=== PATIENT | male | born 1940 | race Caucasian/White ===

== ENCOUNTER → 2018-08-09 | Outpatient (CLI) | payer MEDICARE, OTHER ==
--- NOTE | 2018-08-09 22:04 | XR ---
EXAMINATION TYPE: XR abdomen 1V DATE OF EXAM: 08/09/2018 Comparison: None Clinical History: 78-year-old male follow-up kidney stones, N20.1 calculus of ureter Findings: Nonobstructive bowel gas pattern. Large patient body habitus and resulting underpenetration. Possible 7 mm left upper pole renal calculus. Suspected vascular calcifications in the pelvis. Degenerative c hanges at the hips. No significant stool burden. Impression: Possible 7 mm left upper pole renal calculus. Vascular calcifications in the pelvis. Limited assessme nt due to underpenetration from large body habitus.
== END | disposition home or self-care (01) ==
LOC: RADXRMAIN 11:50
PROVIDERS: ATTEND Urology
DX: N20.1 Calculus of ureter (principal); I70.8 Atherosclerosis of other arteries
CPT/HCPCS: 74018

== ENCOUNTER 2018-09-07 11:27 | Observation (INO) | payer MEDICARE, OTHER ==
[2018-09-07] MEDS ORDERED: NITROGLYCERIN OINT 1 INCH/GM PACKET TOPICAL STA (12:17)
[2018-09-07] MEDS ORDERED: FUROSEMIDE 10 MG/ML 4 ML VIAL IV STA (12:17)
--- NOTE | 2018-09-07 12:30 | ED ---
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 Patient states over the last month she's been noticing increased edema from his ankles all the way up to his abdominal region. Patient also was noticed increased shortness of breath. Patient states she's followed up with multiple physicians and no one has indicated to him what is wrong. Patient denies any chest pain or palpitations. Patient denies any fever chills or cough. Patient denies lightheadedness dizziness or near syncopal episode. Patient states she has a very mild headache. Patient denies any blurred vision. Patient denies any calf tenderness. Patient denies any recent trips or travel. - Related Data Home Medications Medication Instructions Recorded Confirmed Aspirin 81 mg PO DAILY 07/21/14 09/07/18 Metoprolol Tartrate [Lopressor] 25 mg PO BID 09/08/14 09/07/18 Aspirin EC [Ecotrin] 325 mg PO Q4H PRN 09/07/18 09/07/18 Cholecalciferol (Vitamin D3) 2,000 unit PO DAILY 09/07/18 09/07/18 [Vitamin D3] Clopidogrel Bisulfate [Plavix] 75 mg PO DAILY 09/07/18 09/07/18 Losartan Potassium [Cozaar] 100 mg PO DAILY 09/07/18 09/07/18 Magnesium Oxide [Armando] 500 mg PO DAILY 09/07/18 09/07/18 Allergies Allergy/AdvReac Type Severity Reaction Status Date / Time No Known Allergies Allergy Verified 09/07/18 12:21 Review of Systems ROS Statement: Those systems with pertinent positive or pertinent negative responses have been documented in the HPI. ROS Other: All systems not noted in ROS Statement are negative. 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 History of Any Multi-Drug Resistant Organisms: None Reported Past Surgical History: Back Surgery, Cholecystectomy, Coronary Bypass/CABG, Heart Catheterization Additional Past Surgical History / Comment(s): PLATE IN NECK Past Anesthesia/Blood Transfusion Reactions: Motion Sickness Past Psychological History: No Psychological Hx Reported Smoking Status: Former smoker Past Alcohol Use History: Daily Past Drug Use History: None Reported - Past Family History Father Additional Family Medical History / Comment(s): lung General Exam - General Exam Comments Initial Comments: GENERAL: Patient is well-developed and well-nourished. Patient is nontoxic and well- hydrated and is in mild distress. ENT: Neck is soft and supple. No significant lymphadenopathy is noted. Oropharynx is clear. Moist mucous membranes. Neck has full range of motion without elic iting any pain. EYES: The sclera were anicteric and conjunctiva were pink and moist. Extraocular movements were intact and pupils were equal round and reactive to light. Eyelids were unremarkable. PULMONARY: Unlabored respirations. Good breath sounds bilaterally. No audible rales rhonchi or wheezing was noted. CARDIOVASCULAR: There is a regular rate and rhythm without any murmurs gallops or rubs. ABDOMEN: Soft and nontender with normal bowel sounds. No palpable organomegaly was note d. There is no palpable pulsatile mass. SKIN: Skin is clear with no lesions or rashes and otherwise unremarkable. NEUROLOGIC: Patient is alert and oriented x3. Cranial nerves II through XII are grossly intact. Motor and sensory are also intact. Normal speech, volume and content. Symmetrical smile. MUSCULOSKELETAL: Normal extremities with adequate strength and full range of motion. Patient has swelling to the bilateral legs all the way up the thighs and onto his lower abdomen. LYMPHATICS: No significant lymphadenopathy is noted PSYCHIATRIC: Normal psychiatric evaluation. Limitations: no limitations Course Vital Signs 09/07/18 09/07/18 09/07/18 11:37 12:37 13:00 Temperature 98.0 F Pulse Rate 91 66 Respiratory 16 20 20 Rate Blood Pressure 177/87 177/89 O2 Sat by Pulse 96 Oximetry 09/07/18 14:30 Temperature Pulse Rate 63 Respiratory 18 Rate Blood Pressure 175/86 O2 Sat by Pulse Oximetry Medical Decision Making - Medical Decision Making EKG shows normal sinus rhythm at 77 bpm MS interval is on an 88 QRSs 106 QT interval 412 QTC is 466. Patient's EKG shows no ST segment elevation or depression or T-wave abdomen is noted. Chest x-ray shows pulmonary edema. I gave the patient Lasix and nitro paste emergency department he produced quite a bit of urine. Patient has anasarca and that associated with acute pulmonary edema I will be admitting the patient. I spoke with Dr. Lopez he agreed to admit the patient admitted the patient continue the Lasix and Nitropaste on the floor. I consulted cardiology as well. - Lab Data Result diagrams: 09/07/18 12:37 09/07/18 12:37 Lab Results 09/07/18 09/07/18 09/07/18 Range/Units 12:37 12:37 12:37 WBC 6.4 (3.8-10.6) k/uL RBC 4.91 (4.30-5.90) m/uL Hgb 10.6 L (13.0-17.5) gm/dL Hct 36.5 L (39.0-53.0) % MCV 74.3 L (80.0-100.0) fL MCH 21.5 L (25.0-35.0) pg MCHC 29.0 L (31.0-37.0) g/dL RDW 18.9 H (11.5-15.5) % Plt Count 255 (150-450) k/uL Neutrophils % 75 % Lymphocytes % 12 % Monocytes % 8 % Eosinophils % 3 % Basophils % 0 % Neutrophils # 4.8 (1.3-7.7) k/uL Lymphocytes # 0.8 L (1.0-4.8) k/uL Monocytes # 0.5 (0-1.0) k/uL Eosinophils # 0.2 (0-0.7) k/uL Basophils # 0.0 (0-0.2) k/uL Hypochromasia Marked Anisocytosis Slight Microcytosis Moderate PT (9.0-12.0) sec INR (<1.2) APTT (22.0-30.0) sec Sodium 142 (137-145) mmol/L Potassium 4.5 (3.5-5.1) mmol/L Chloride 107 (98-107) mmol/L Carbon Dioxide 29 (22-30) mmol/L Anion Gap 6 mmol/L BUN 19 (9-20) mg/dL Creatinine 0.74 (0.66-1.25) mg/dL Est GFR (CKD-EPI)AfAm >90 (>60 ml/min/1.73 sqM) Est GFR (CKD-EPI)NonAf 88 (>60 ml/min/1.73 sqM) Glucose 95 (74-99) mg/dL Calcium 9.2 (8.4-10.2) mg/dL Magnesium 2.1 (1.6-2.3) mg/dL Total Bilirubin 1.1 (0.2-1.3) mg/dL AST 22 (17-59) U/L ALT 29 (21-72) U/L Alkaline Phosphatase 104 (38-126) U/L Troponin I (0.000-0.034) ng/mL NT-Pro-B Natriuret Pep 2190 pg/mL Total Protein 6.5 (6.3-8.2) g/dL Albumin 3.4 L (3.5-5.0) g/dL 09/07/18 09/07/18 Range/Units 12:37 12:37 WBC (3.8-10.6) k/uL RBC (4.30-5.90) m/uL Hgb (13.0-17.5) gm/dL Hct (39.0-53.0) % MCV (80.0-100.0) fL MCH (25.0-35.0) pg MCHC (31.0-37.0) g/dL RDW (11.5-15.5) % Plt Count (150-450) k/uL Neutrophils % % Lymphocytes % % Monocytes % % Eosinophils % % Basophils % % Neutrophils # (1.3-7.7) k/uL Lymphocytes # (1.0-4.8) k/uL Monocytes # (0-1.0) k/uL Eosinophils # (0-0.7) k/uL Basophils # (0-0.2) k/uL Hypochromasia Anisocytosis Microcytosis PT 12.2 H (9.0-12.0) sec INR 1.2 H (<1.2) APTT 24.0 (22.0-30.0) sec Sodium (137-145) mmol/L Potassium (3.5-5.1) mmol/L Chloride (98-107) mmol/L Carbon Dioxide (22-30) mmol/L Anion Gap mmol/L BUN (9-20) mg/dL Creatinine (0.66-1.25) mg/dL Est GFR (CKD-EPI)AfAm (>60 ml/min/1.73 sqM) Est GFR (CKD-EPI)NonAf (>60 ml/min/1.73 sqM) Glucose (74-99) mg/dL Calcium (8.4-10.2) mg/dL Magnesium (1.6-2.3) mg/dL Total Bilirubin (0.2-1.3) mg/dL AST (17-59) U/L ALT (21-72) U/L Alkaline Phosphatase (38-126) U/L Troponin I <0.012 (0.000-0.034) ng/mL NT-Pro-B Natriuret Pep pg/mL Total Protein (6.3-8.2) g/dL Albumin (3.5-5.0) g/dL Critical Care Time Critical Care Time: Yes Total Critical Care Time: 35 Disposition Clinical Impression: Acute pulmonary edema, Anasarca Disposition: ADMITTED IP TO THIS HOSP Referrals: Bayron Johnson MD [Primary Care Provider] - 1-2 days Time of Disposition: 15:02
[2018-09-07 12:57] LABS: Anisocytosis Slight; Basophils % (A) 0 %; Eosinophils # (A) 0.2 k/uL (0-0.7); Eosinophils % (A) 3 %; HCT 36.5 % (39.0-53.0); HGB 10.6 gm/dL (13.0-17.5); Hypochromasia Marked; Lymphocytes # (A) 0.8 k/uL (1.0-4.8); Lymphocytes % (A) 12 %; MCH 21.5 pg (25.0-35.0); MCV 74.3 fL (80.0-100.0); Mean Platelet Volume 8.2; Microcytosis Moderate; Monocytes # (A) 0.5 k/uL (0-1.0); Monocytes % (A) 8 %; Neutrophils # (A) 4.8 k/uL (1.3-7.7); Neutrophils % (A) 75 %; Platelet Count 255 k/uL (150-450); RBC 4.91 m/uL (4.30-5.90); RDW 18.9 % (11.5-15.5); WBC 6.4 k/uL (3.8-10.6)
[2018-09-07 13:07] LABS: ALT 29 U/L (21-72); AST 22 U/L (17-59); Albumin 3.4 g/dL (3.5-5.0); Alkaline Phosphatase 104 U/L (38-126); Anion Gap 6 mmol/L; Blood Urea Nitrogen 19 mg/dL (9-20); Calcium 9.2 mg/dL (8.4-10.2); Carbon Dioxide 29 mmol/L (22-30); Chloride 107 mmol/L (98-107); Glucose 95 mg/dL (74-99); INR 1.2 (<1.2); Magnesium 2.1 mg/dL (1.6-2.3); Potassium 4.5 mmol/L (3.5-5.1); Prothrombin Time 12.2 sec (9.0-12.0); Sodium 142 mmol/L (137-145); Total Bilirubin 1.1 mg/dL (0.2-1.3); Total Protein 6.5 g/dL (6.3-8.2)
--- NOTE | 2018-09-07 13:21 | XR ---
EXAMINATION TYPE: XR chest 2V DATE OF EXAM: 09/07/2018 COMPARISON: None HISTORY: 78-year-old male difficulty breathing, shortness of breath TECHNIQUE: PA and lateral views FINDINGS: Heart mildly enlarged. Median sternotomy wires. Diffuse interstitial densities with some Shirley B priya es in the lower lungs. Small bilateral pleural effusions are demonstrated on the lateral view. ACDF h ardware. IMPRESSION: Mild cardiomegaly and CHF with mild interstitial pulmonary edema. Small pleural effusions.
[2018-09-07 16:36] LABS: Amorphous Sediment,Urine Occasional /hpf; Appearance,Urine Clear (Clear); Bilirubin,Urine Negative (Negative); Blood,Urine Small (Negative); Color,Urine Yellow; Glucose,Urine (UA) Negative (Negative); Hyaline Casts,Urine 1 /lpf (0-2); Ketones,Urine Negative (Negative); Leukocyte Esterase,Urine Negative (Negative); Mucus,Urine Occasional /hpf; Nitrite,Urine Negative (Negative); PH, Urine 6.5 (5.0-8.0); Protein,Urine 1+ (Negative); RBC,Urine 22 /hpf (0-5); Specific Gravity,Urine 1.015 (1.001-1.035); Squamous Epithelial Cell,Urine 1 /hpf (0-4); Urobilinogen,Urine <2.0 mg/dL (<2.0); WBC,Urine 8 /hpf (0-5)
--- NOTE | 2018-09-07 17:05 | P.HPIM ---
History of Present Illness This is a pleasant 8-year-old gentleman came in with compensative for bilateral pedal edema has been going on now for few months started in both ankles now extending up to poor midthigh areas. Patient doesn't have any ascites denied any alcohol history patient had a recent echocardiogram he was told which is this is within normal limits patient also had a recent stress test patient denied any fever chills. PE. Because of the neck issues patient didn't lie flat denied any significant history of paroxysmal nocturnal dyspnea chest x-ray also showed mild bilateral pleural effusions with possibly of some pulmonary edema. Patient's abdomen is distended but doesn't have any fluid shift or shifting dullness. UA only showed minimal proteinuria. And did have history of prostate cancer with radiation therapy 15 years ago. Patient had a recent the esophageal cancerous lesion that was removed and supposed to follow-up in [facility] for the lesion in the saphenous. Patient denied any calf pain. BNP is 2200 Review of Systems REVIEW OF SYSTEMS: CONSTITUTIONAL: No fever, no malaise, no fatigue. HEENT: No recent visual problems or hearing problems. Denied any sore throat. CARDIOVASCULAR: No chest pain, orthopnea, PND, no palpitations, no syncope. PULMONARY: , no cough, no hemoptysis. GASTROINTESTINAL: No diarrhea, no nausea, no vomiting, no abdominal pain. NEUROLOGICAL: No headaches, no weakness, no numbness. HEMATOLOGICAL: Denies any bleeding or petechiae. GENITOURINARY: Denies any burning micturition, frequency, or urgency. MUSCULOSKELETAL/RHEUMATOLOGICAL: Denies any joint pain, swelling, or any muscle pain. ENDOCRINE: Denies any polyuria or polydipsia. The rest of the 14-point review of systems is negative. 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 History of Any Multi-Drug Resistant Organisms: None Reported Past Surgical History: Back Surgery, Cholecystectomy, Coronary Bypass/CABG, Heart Catheterization Additional Past Surgical History / Comment(s): PLATE IN NECK Past Anesthesia/Blood Transfusion Reactions: Motion Sickness Past Psychological History: No Psychological Hx Reported Smoking Status: Former smoker Past Alcohol Use History: Daily Past Drug Use History: None Reported - Past Family History Father Additional Family Medical History / Comment(s): lung Medications and Allergies Home Medications Medication Instructions Recorded Confirmed Type Aspirin 81 mg PO DAILY 07/21/14 09/07/18 History Metoprolol Tartrate [Lopressor] 25 mg PO BID 09/08/14 09/07/18 History Aspirin EC [Ecotrin] 325 mg PO Q4H PRN 09/07/18 09/07/18 History Cholecalciferol (Vitamin D3) 2,000 unit PO DAILY 09/07/18 09/07/18 History [Vitamin D3] Clopidogrel Bisulfate [Plavix] 75 mg PO DAILY 09/07/18 09/07/18 History Losartan Potassium [Cozaar] 100 mg PO DAILY 09/07/18 09/07/18 History Magnesium Oxide [Armando] 500 mg PO DAILY 09/07/18 09/07/18 History Allergies Allergy/AdvReac Type Severity Reaction Status Date / Time No Known Allergies Allergy Verified 09/07/18 12:21 Physical Exam Vitals: Vital Signs Temp Pulse Resp BP Pulse Ox 09/07/18 16:05 97.1 F L 60 20 168/90 99 09/07/18 15:30 62 18 137/78 97 09/07/18 15:00 62 18 162/84 09/07/18 14:30 63 18 175/86 09/07/18 13:00 20 177/89 09/07/18 12:37 66 20 09/07/18 11:37 98.0 F 91 16 177/87 96 Intake and Output 09/07/18 09/07/18 09/07/18 06:59 14:59 22:59 Output Total 1735 715 Balance -1735 -715 Output: Urine 1735 715 Other: # Voids 1 Weight 122.47 kg PHYSICAL EXAMINATION: GENERAL: The patient is alert and oriented x3, not in any acute distress. Well developed, well nourished. HEENT: Pupils are round and equally reacting to light. EOMI. No scleral icterus. No conjunctival pallor. Normocephalic, atraumatic. No pharyngeal erythema. No thyromegaly. CARDIOVASCULAR: S1 and S2 present. No murmurs, rubs, or gallops. PULMONARY: Chest is clear to auscultation, no wheezing or crackles. ABDOMEN: Soft, distended tympanic MUSCULOSKELETAL: No joint swelling or deformity. EXTREMITIES: No cyanosis, clubbing, does have extensive bilateral pitting pedal edema extending up to both mid thigh areas NEUROLOGICAL: Gross neurological examination did not reveal any focal deficits. SKIN: No rashes. Results CBC & Chem 7: 09/07/18 12:37 09/07/18 12:37 Labs: Abnormal Lab Results - Last 24 Hours (Table) 09/07/18 09/07/18 09/07/18 Range/Units 12:37 12:37 12:37 Hgb 10.6 L (13.0-17.5) gm/dL Hct 36.5 L (39.0-53.0) % MCV 74.3 L (80.0-100.0) fL MCH 21.5 L (25.0-35.0) pg MCHC 29.0 L (31.0-37.0) g/dL RDW 18.9 H (11.5-15.5) % Lymphocytes # 0.8 L (1.0-4.8) k/uL PT 12.2 H (9.0-12.0) sec INR 1.2 H (<1.2) Albumin 3.4 L (3.5-5.0) g/dL Urine Protein (Negative) Urine Blood (Negative) Urine RBC (0-5) /hpf Urine WBC (0-5) /hpf Amorphous Sediment (None) /hpf Urine Mucus (None) /hpf 09/07/18 Range/Units 16:00 Hgb (13.0-17.5) gm/dL Hct (39.0-53.0) % MCV (80.0-100.0) fL MCH (25.0-35.0) pg MCHC (31.0-37.0) g/dL RDW (11.5-15.5) % Lymphocytes # (1.0-4.8) k/uL PT (9.0-12.0) sec INR (<1.2) Albumin (3.5-5.0) g/dL Urine Protein 1+ H (Negative) Urine Blood Small H (Negative) Urine RBC 22 H (0-5) /hpf Urine WBC 8 H (0-5) /hpf Amorphous Sediment Occasional H (None) /hpf Urine Mucus Occasional H (None) /hpf Assessment and Plan Plan: -Bilateral pedal edema volume overload: Etiology is not clear as were the of heart failure cannot be ruled out cardiology will evaluate the patient patient had an echocardiogram recently as an outpatient which will be obtained there is no evidence of liver disease are chronic kidney disease with nephrotic syndrome. Local venous causes including the lymphatic obstruction cannot be ruled out will obtain Doppler of bilateral lower extremity. Patient will be continued on IV Lasix -Hypertension -History of prostate cancer in remission radiation therapy 15 years ago -Asthma without any acute exacerbation -Coronary artery disease CABG in the past continue with beta margot and aspirin unsure whether patient will require Plavix.
[2018-09-07] MEDS: NITROGLYCERIN OINT 1 INCH/GM PACKET TOPICAL SCH ×2 (17:29→21:35)
[2018-09-07] MEDS: ACETAMINOPHEN TAB 325 MG TAB PO PRN ×2 (17:29→21:35)
[2018-09-07] MEDS: FUROSEMIDE 10 MG/ML 4 ML VIAL IV SCH (20:45)
[2018-09-07] MEDS: METOPROLOL TARTRATE 25 MG TAB PO SCH (20:46)
[2018-09-08] MEDS: ACETAMINOPHEN TAB 325 MG TAB PO PRN ×2 (04:17→20:52)
[2018-09-08 07:26] LABS: Anion Gap 4 mmol/L; Blood Urea Nitrogen 22 mg/dL (9-20); Calcium 8.8 mg/dL (8.4-10.2); Carbon Dioxide 35 mmol/L (22-30); Chloride 101 mmol/L (98-107); Glucose 98 mg/dL (74-99); Sodium 140 mmol/L (137-145)
[2018-09-08 08:18] LABS: Potassium 4.2 mmol/L (3.5-5.1)
--- NOTE | 2018-09-08 08:39 | US ---
EXAMINATION TYPE: US venous doppler duplex LE DATE OF EXAM: 09/08/2018 8:04 AM COMPARISON: NONE CLINICAL HISTORY: pedal edema. bilateral edema for months, no h/o dvt SIDE PERFORMED: Bilateral TECHNIQUE: The lower extremity deep venous system is examined utilizing real time linear array sonog kevin with graded compression, doppler sonography and color-flow sonography. VESSELS IMAGED: External Iliac Vein (EIV) Common Femoral Vein Deep Femoral Vein Greater Saphenous Vein * Femoral Vein Popliteal Vein Small Saphenous Vein * Proximal Calf Veins (* superficial vessels) Right Leg: Appears negative for DVT Left Leg: Appears negative for DVT IMPRESSION: No evidence for DVT
[2018-09-08] MEDS: FUROSEMIDE 10 MG/ML 4 ML VIAL IV SCH ×2 (09:47→20:51)
[2018-09-08] MEDS: ASPIRIN 81 MG PO SCH (09:48)
[2018-09-08] MEDS: NITROGLYCERIN OINT 1 INCH/GM PACKET TOPICAL SCH ×4 (09:48→20:52)
[2018-09-08] MEDS: METOPROLOL TARTRATE 25 MG TAB PO SCH ×2 (09:48→20:52)
[2018-09-08] MEDS: CLOPIDOGREL 75 MG TAB PO SCH (09:48)
[2018-09-08] MEDS: LOSARTAN 50 MG TAB PO SCH (09:48)
[2018-09-08] MEDS: MAGNESIUM OXIDE 400 MG TAB PO SCH (09:48)
--- NOTE | 2018-09-08 10:41 | P.CRDCN ---
History of Present Illness Consult date: 09/08/18 Chief complaint: Incresing BLE edema/shortness of breath History of present illness: HISTORY OF PRESENT ILLNESS AND PLAN: This is a [78]-year-old [male] with history of CAD, CABG 16 years ago, hyper tension, hyperlipidemia, prostate cancer with radiation 15 years ago (recent procedure/biopsy as well), recent esophageal cancer s/p removal of polyp. Patient received no chemotherapy or radiation recently only cryotherapy. Patient was supposed to have additional esophageal CA procedure yesterday but it was delayed due to hypertension, shortness of breath/edema. Presents in the emergency department for [complaints of hypertension, increasing shortness of breath, weight gain and lower extremity edema up to his waist. Patient states edema started with prostate CA and esophageal CA therapy. Patient follows with Dr. Orlando in office for the past 16 years. Patient had recent echo August 2018 with an EF of 55%, moderate to severe MR. Patient currently sitting comfortable in recliner, no current complaints of chest pain, heart palpitations or shortness of breath, on room air. Patient continues to complain of severe lower extremity edema. Venous Doppler of bilateral lower extremities negative for DVT. Patient continues with Lasix 40 mg IV every 12 hours. Patient states he had problems with urinating after prostate procedure but is currently voiding without problems. SIGNIFICANT PAST MEDICAL HISTORY: [CAD status post CABG 16 years ago, hypertension hyperlipidemia, prostate cancer and esophageal cancer.] PAST SURGICAL HISTORY: See list. EKG shows [sinus rhythm, right bundle branch block], heart rate [70] beats per minute. Troponins negative x [1]. SIGNIFICANT LABORATORY VALUES: [CBC, WNL. BMP, WNL. U/A borderline, with RBCs. Troponin negative 1]. Chest x-ray [positive CHF, small bilateral effusions. Mild cardiomegaly.] Venous Doppler of bilateral lower extremities negative for DVT. Most recent echo dated = [08/23/2018] indicates [EF 55%, moderate concentric hypertrophy. Moderately dilated right ventricle. Severely dilated left atrium. Moderate AR. Moderate to severe MR. Severe TR. Elevated PASP, 72. Mild SD ]. Most recent stress testing dated = [08/19/2018] indicates [abnormal myocardial perfusion, inferior/inferior lateral fixed defects. Partial normalization hypokinesis. Prior TX. Mild william-Infarct ischemia.]. REVIEW OF SYSTEMS: CONSTITUTIONAL: [Denies fever. Denies chills.] EYES: Denies blurred vision. [Denies blurred vision or vision changes. Denies eye pain.] EARS, NOSE, MOUTH & THROAT: [Denies headache. Denies sore throat. Denies ear pain Denies hemoptysis.] CARDIOVASCULAR: [Denies chest pain. Complains of shortness of breath, none currently. Denies orthopnea. Denies PND. Denies palpitations. Complains of bilateral lower extremity edema] RESPIRATORY: [Denies cough. Complains of shortness of breath, none currently. ] GASTROINTESTINAL: [Denies abdominal pain. Complains of abdominal distention. Denies diarrhea. Denies constipation. Denies nausea. Denies vomiting.] MUSCULOSKELETAL: [Denies myalgias.] INTEGUMENTARY: [Denies pruitis. Denies rash.] ENDOCRINE: [Denies fatigue. Denies weight change. Denies polydipsia. Denies polyurina Denies heat/cold intolerance.] GENITOURINARY:[ Denies burning, hematuria or urgency with micturation.] HEMATOLOGIC: [Denies history of anemia. Denies bleeding.] NEUROLOGIC: [Denies numbness. Denies tingling. Denies weakness.] PSYCHIATRIC: [Denies anxiety. Denies depression.] PHYSICAL EXAM: VITAL SIGNS: 136/62, HR 62. RR 18. afebrile GENERAL: Well developed, in no acute distress. HEENT: Head is atraumatic, normocephalic. Pupils are equal, round. Extra ocular movements intact. Mucous membranes moist. Neck supple. No JVD. No carotid bruit. No thyromegaly. LUNGS: Clear to auscultation on left. Right wheezes at the base. No rales or rhonchi. No chest wall tenderness on palpation or with deep breathing. HEART: Regular rate and rhythm, no rubs or gallops. S1 and S2 heard. Systolic ejection murmur noted at the base, II/. ABDOMEN: Abdominal exam, WNL. Bowel sounds x4 quads. Soft, non-tender, without masses, organomegaly, or abdominal aorta enlargement. EXTREMITIES/VASCULAR: Extremities have easily palpable radial, femoral, dorsalis pedis and posterior tibial pulses. No cyanosis, calf tenderness. 3-4+ BLE edema. NEUROLOGIC: Patient is awake, alert and oriented x3. No acute distress. No focal neurological abnormalities. Impression: 1. Exacerbation of diastolic heart failure 2. Pulmonary hypertension 3. Stable CAD 4. Benign prostate CA 5. Esophageal CA PLAN: [Continue with Lasix 40 mg IV every 12 hours. Start Zaroxolyn 5 mg by mouth daily. Continue telemetry monitoring. Repeat BMP in a.m. Patient advised on low salt diet, heart healthy diet. Continue same all other medication/medical regime. Will follow, please call with any questions or concerns. Thank you kindly for this consult. ] Nurse Practitioner note has been reviewed by Physician. Signing provider agrees with the documented findings, assessment and plan of care. Past Medical History Past Medical History: Asthma, Cancer, Hypertension, Prostate Disorder Additional Past Medical History / Comment(s): HX OF ASTHMA YRS AGO (NO PROBLEM NOW), PROSTATE CA 2001 WITH RADIATION, KIDNEY STONES., STATES OCCASIONAL STOMACH ACHE. History of Any Multi-Drug Resistant Organisms: None Reported Past Surgical History: Back Surgery, Cholecystectomy, Coronary Bypass/CABG, Heart Catheterization Additional Past Surgical History / Comment(s): PLATE IN NECK Past Anesthesia/Blood Transfusion Reactions: Motion Sickness Past Psychological History: No Psychological Hx Reported Smoking Status: Former smoker Past Alcohol Use History: None Reported Additional Past Alcohol Use History / Comment(s): states no alcohol use since April 2018 Past Drug Use History: None Reported - Past Family History Father Family Medical History: Cancer Additional Family Medical History / Comment(s): lung Medications and Allergies Home Medications Medication Instructions Recorded Confirmed Type Aspirin 81 mg PO DAILY 07/21/14 09/07/18 History Metoprolol Tartrate [Lopressor] 25 mg PO BID 09/08/14 09/07/18 History Aspirin EC [Ecotrin] 325 mg PO Q4H PRN 09/07/18 09/07/18 History Cholecalciferol (Vitamin D3) 2,000 unit PO DAILY 09/07/18 09/07/18 History [Vitamin D3] Clopidogrel Bisulfate [Plavix] 75 mg PO DAILY 09/07/18 09/07/18 History Losartan Potassium [Cozaar] 100 mg PO DAILY 09/07/18 09/07/18 History Magnesium Oxide [Armando] 500 mg PO DAILY 09/07/18 09/07/18 History Allergies Allergy/AdvReac Type Severity Reaction Status Date / Time No Known Allergies Allergy Verified 09/07/18 12:21 Physical Exam Vitals: Vital Signs Temp Pulse Pulse Resp BP BP BP 09/08/18 07:27 96.1 F L 74 18 141/67 09/08/18 04:00 98 F 80 16 136/64 09/08/18 00:00 97.4 F L 64 16 136/62 09/07/18 20:00 97.7 F 68 16 149/70 09/07/18 17:21 97.3 F L 62 16 161/97 09/07/18 16:05 97.1 F L 60 20 168/90 09/07/18 15:30 62 18 137/78 09/07/18 15:00 62 18 162/84 09/07/18 14:30 63 18 175/86 09/07/18 13:00 20 177/89 09/07/18 12:37 66 20 09/07/18 11:37 98.0 F 91 16 177/87 Pulse Ox 09/08/18 07:27 93 L 09/08/18 04:00 92 L 09/08/18 00:00 92 L 09/07/18 20:00 94 L 09/07/18 17:21 99 09/07/18 16:05 99 09/07/18 15:30 97 09/07/18 15:00 09/07/18 14:30 09/07/18 13:00 09/07/18 12:37 09/07/18 11:37 96 Intake and Output 09/07/18 09/08/18 09/08/18 22:59 06:59 14:59 Intake Total 780 380 Output Total 1415 50 1050 Balance -658 -14 -282 Intake: Oral 780 380 Output: Urine 1415 50 1050 Other: Voiding Method Toilet Urinal # Voids 1 1 # Bowel Movements 0 Weight 121.4 kg Results 09/07/18 12:37 09/08/18 06:27 Cardiac Enzymes 09/07/18 09/07/18 Range/Units 12:37 12:37 AST 22 (17-59) U/L Troponin I <0.012 (0.000-0.034) ng/mL Coagulation 09/07/18 Range/Units 12:37 PT 12.2 H (9.0-12.0) sec APTT 24.0 (22.0-30.0) sec CBC 09/07/18 Range/Units 12:37 WBC 6.4 (3.8-10.6) k/uL RBC 4.91 (4.30-5.90) m/uL Hgb 10.6 L (13.0-17.5) gm/dL Hct 36.5 L (39.0-53.0) % Plt Count 255 (150-450) k/uL Comprehensive Metabolic Panel 09/07/18 09/08/18 Range/Units 12:37 06:27 Sodium 142 140 (137-145) mmol/L Potassium 4.5 4.2 (3.5-5.1) mmol/L Chloride 107 101 (98-107) mmol/L Carbon Dioxide 29 35 H (22-30) mmol/L BUN 19 22 H (9-20) mg/dL Creatinine 0.74 0.92 (0.66-1.25) mg/dL Glucose 95 98 (74-99) mg/dL Calcium 9.2 8.8 (8.4-10.2) mg/dL AST 22 (17-59) U/L ALT 29 (21-72) U/L Alkaline Phosphatase 104 (38-126) U/L Total Protein 6.5 (6.3-8.2) g/dL Albumin 3.4 L (3.5-5.0) g/dL Current Medications Generic Name Dose Route Start Last Admin Trade Name Freq PRN Reason Stop Dose Admin Acetaminophen 650 mg 09/07/18 17:08 09/08/18 04:17 Tylenol Tab PO 650 mg Q4HR PRN Administration Fever and/ or Pain Aspirin 81 mg 09/08/18 09:00 09/08/18 09:48 Aspirin PO 81 mg DAILY DARSHAN Administration Clopidogrel Bisulfate 75 mg 09/08/18 09:00 09/08/18 09:48 Plavix PO 75 mg DAILY DARSHAN Administration Furosemide 40 mg 09/07/18 21:00 09/08/18 09:47 Lasix IV 40 mg Q12HR DARSHAN Administration Losartan Potassium 100 mg 09/08/18 09:00 09/08/18 09:48 Cozaar PO 100 mg DAILY DARSHAN Administration Magnesium Oxide 400 mg 09/08/18 09:00 09/08/18 09:48 Mag-Ox PO 400 mg DAILY DARSHAN Administration Metolazone 5 mg 09/08/18 10:00 Zaroxolyn PO DAILY DARSHAN Metoprolol Tartrate 25 mg 09/07/18 21:00 09/08/18 09:48 Lopressor PO 25 mg BID DARSHAN Administration Nitroglycerin 1 inch 09/07/18 18:00 09/08/18 09:48 Nitro-Bid Oint TOPICAL 1 inch QID DARSHAN Administration Intake and Output 09/07/18 09/08/18 09/08/18 22:59 06:59 14:59 Intake Total 780 380 Output Total 1415 50 1050 Balance -635 -50 -670 Intake: Oral 780 380 Output: Urine 1415 50 1050 Other: Voiding Method Toilet Urinal # Voids 1 1 # Bowel Movements 0 Weight 121.4 kg 09/07/18 12:37 09/08/18 06:27 - EKG Interpretation EKG: sinus rhythm (RIGHT BBB, HR 60's.) Assessment and Plan Plan: Impression: 1. Exacerbation of diastolic heart failure 2. Pulmonary hypertension 3. Stable CAD 4. Benign prostate CA 5. Esophageal CA PLAN: [Continue with Lasix 40 mg IV every 12 hours. Start Zaroxolyn 5 mg by mouth daily. Continue telemetry monitoring. Repeat BMP in a.m. Patient advised on low salt diet, heart healthy diet. Continue same all other medication/medical regime. Will follow, please call with any questions or concerns. Thank you kindly for this consult. ]
[2018-09-08] MEDS: METOLAZONE 5 MG TAB PO SCH (11:19)
[2018-09-08 15:41] VITALS: BMI 35.3
[2018-09-09 00:26] VITALS: RESP 18
[2018-09-09] MEDS: ACETAMINOPHEN TAB 325 MG TAB PO PRN ×2 (01:42→08:01)
[2018-09-09 05:07] VITALS: BP 161/68; TEMP 97.5
[2018-09-09] MEDS: LOSARTAN 50 MG TAB PO SCH (08:01)
[2018-09-09] MEDS: NITROGLYCERIN OINT 1 INCH/GM PACKET TOPICAL SCH (08:01)
[2018-09-09] MEDS: FUROSEMIDE 10 MG/ML 4 ML VIAL IV SCH (08:02)
[2018-09-09] MEDS: ASPIRIN 81 MG PO SCH (08:02)
[2018-09-09] MEDS: MAGNESIUM OXIDE 400 MG TAB PO SCH (08:02)
[2018-09-09] MEDS: METOPROLOL TARTRATE 25 MG TAB PO SCH (08:02)
[2018-09-09] MEDS: CLOPIDOGREL 75 MG TAB PO SCH (08:02)
[2018-09-09 09:15] LABS: Anion Gap 10 mmol/L; Blood Urea Nitrogen 21 mg/dL (9-20); Calcium 9.3 mg/dL (8.4-10.2); Carbon Dioxide 35 mmol/L (22-30); Chloride 92 mmol/L (98-107); Glucose 128 mg/dL (74-99); Potassium 3.6 mmol/L (3.5-5.1); Sodium 137 mmol/L (137-145)
[2018-09-09] MEDS: METOLAZONE 5 MG TAB PO SCH (11:22)
[2018-09-09 11:59] VITALS: PULSE 64
--- NOTE | 2018-09-09 13:27 | P.DS ---
Providers Date of admission: 09/07/18 15:02 Attending physician: Yanelis Lopez Consults: 09/07/18 15:02 Consult Physician Routine Consulting Provider: [facility] Consult Reason/Comments: Acute pulmonary edema Do you want consulting provider notified?: Yes Primary care physician: Bayron Brooks [facility] Course: 78-year-old admitted for her extensive bilateral pedal edema with mild pulmonary edema and shortness of breath and fatigue all of which improved at this point of time. Patient echocardiogram from outpatient cardiology clinic showed normal ejection fraction RVSP of around 75 consistent with severe pulmonary hypertension may have predominant right-sided heart failure patient did have tricuspid regurgitation as well. Patient is feeling much better today patient will be discharged home with a 40 mg twice a day of oral Lasix. 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 Patient appears to have some chronic diastolic dysfunction as well. Doppler bilateral lower extremity did not show any significant abnormality. PHYSICAL EXAMINATION: GENERAL: The patient is alert and oriented x3, not in any acute distress. Well developed, well nourished. HEENT: Pupils are round and equally reacting to light. EOMI. No scleral icterus. No conjunctival pallor. Normocephalic, atraumatic. No pharyngeal erythema. No thyromegaly. CARDIOVASCULAR: S1 and S2 present. No murmurs, rubs, or gallops. PULMONARY: Chest is clear to auscultation, no wheezing or crackles. ABDOMEN: Soft, nontender, nondistended, normoactive bowel sounds. No palpable organomegaly. MUSCULOSKELETAL: No joint swelling or deformity. EXTREMITIES: Bilateral pedal edema significantly improved but still has some edema NEUROLOGICAL: Gross neurological examination did not reveal any focal deficits. SKIN: No rashes. Assessment and Plan Plan: -Bilateral pedal edema volume overload: Mostly secondary to pulmonary hypertension and right-sided heart failure may have some chronic diastolic dysfunction with acute exacerbation -Hypertension -History of prostate cancer in remission radiation therapy 15 years ago -Asthma without any acute exacerbation -Coronary artery disease CABG in the past continue with beta margot and aspirin unsure whether patient will require Plavix. Plan - Discharge Summary Discharge Rx Participant: No New Discharge Prescriptions: New Potassium Chloride [Klor-Con 10] 10 meq PO DAILY #30 tablet.er Furosemide [Lasix] 40 mg PO BID #60 tablet Continue Aspirin 81 mg PO DAILY Metoprolol Tartrate [Lopressor] 25 mg PO BID Magnesium Oxide [Armando] 500 mg PO DAILY Aspirin EC [Ecotrin] 325 mg PO Q4H PRN PRN Reason: Pain Losartan Potassium [Cozaar] 100 mg PO DAILY Clopidogrel Bisulfate [Plavix] 75 mg PO DAILY Cholecalciferol (Vitamin D3) [Vitamin D3] 2,000 unit PO DAILY Discharge Medication List Aspirin 81 mg PO DAILY 07/21/14 [History] Metoprolol Tartrate [Lopressor] 25 mg PO BID 09/08/14 [History] Aspirin EC [Ecotrin] 325 mg PO Q4H PRN 09/07/18 [History] Cholecalciferol (Vitamin D3) [Vitamin D3] 2,000 unit PO DAILY 09/07/18 [History] Clopidogrel Bisulfate [Plavix] 75 mg PO DAILY 09/07/18 [History] Losartan Potassium [Cozaar] 100 mg PO DAILY 09/07/18 [History] Magnesium Oxide [Armando] 500 mg PO DAILY 09/07/18 [History] Furosemide [Lasix] 40 mg PO BID #60 tablet 09/09/18 [Rx] Potassium Chloride [Klor-Con 10] 10 meq PO DAILY #30 tablet.er 09/09/18 [Rx] Follow up Appointment(s)/Referral(s): Anil Orlando MD [STAFF PHYSICIAN] - 09/16/18 9:30 am Bayron Johnson MD [Primary Care Provider] - 09/15/18 9:30 am Ambulatory/Diagnostic Orders: Basic Metabolic Panel [LAB.AMB] Time Frame: 3 Days, Location: None Selected Patient Instructions/Handouts: Furosemide (By mouth), Potassium Chloride (By mouth), Heart Failure (DC), Pulmonary Edema (DC), Heart Healthy Diet (DC) Discharge Disposition: HOME SELF-CARE
== END 2018-09-09 14:45 | disposition home or self-care (01) ==
LOC: EC 11:27 → INTOOBSV 15:02 → 3SCARD 15:02 → 3NMEDONC 09-08 22:55
PROVIDERS: ADMIT Internal Medicine; ATTEND Internal Medicine
DX: E87.70 Fluid overload, unspecified (principal); I27.20 Pulmonary hypertension, unspecified; I11.0 Hypertensive heart disease with heart failure; I50.810 Right heart failure, unspecified; R51 Headache; J45.909 Unspecified asthma, uncomplicated; C15.9 Malignant neoplasm of esophagus, unspecified; Z85.46 Personal history of malignant neoplasm of prostate; Z92.3 Personal history of irradiation; I25.10 Atherosclerotic heart disease of native coronary artery without angina pectoris; I25.2 Old myocardial infarction; E78.5 Hyperlipidemia, unspecified; Z95.1 Presence of aortocoronary bypass graft; I07.1 Rheumatic tricuspid insufficiency; Z87.442 Personal history of urinary calculi; Z90.49 Acquired absence of other specified parts of digestive tract; Z87.891 Personal history of nicotine dependence; Z79.82 Long term (current) use of aspirin; Z79.899 Other long term (current) drug therapy; Z79.02 Long term (current) use of antithrombotics/antiplatelets; Z80.1 Family history of malignant neoplasm of trachea, bronchus and lung
CPT/HCPCS: 96376 ×3; 96374; 99291; 36415; 94760; 93005; 83880; 80053; 80048 ×2; 83735; 84484; 85025; 85610; 85730; 81001; 71046; 93970; G0378 ×4; J1940 ×3

== ENCOUNTER → 2018-10-08 | Outpatient (CLI) | payer MEDICARE, OTHER ==
[2018-10-08 17:00] LABS: Anion Gap 10.5 mmol/L (4.00-12.00); Calcium 9.2 mg/dL (8.7-10.3); Carbon Dioxide 28.5 mmol/L (21.6-31.8); Potassium 4.1 mmol/L (3.5-5.5)
== END | disposition home or self-care (01) ==
LOC: LABWHC1 09:28
PROVIDERS: ATTEND Nurse Practitioner Adult Health
DX: I50.32 Chronic diastolic (congestive) heart failure (principal)
CPT/HCPCS: 36415; 80048

== ENCOUNTER → 2023-09-15 | Outpatient (CLI) | payer MEDICARE, OTHER ==
--- NOTE | 2023-09-16 17:16 | MR ---
EXAMINATION TYPE: MR cspine/lspine wo con DATE OF EXAM: 09/15/2023 3:22 PM CLINICAL INDICATION:Male, 83 years old with history of M48.061 M50.20; Neck and low back pain COMPARISON: None TECHNIQUE: Multi planar, multi sequence imaging was performed utilizing: T1-weighted, T2-weighted, a nd turbo inversion recovery imaging of the cervical and lumbar spine. MR contrast: IV Contrast: None. FINDINGS: CERVICAL: Alignment: The cervical vertebral bodies have preserved heights. Alignment is within normal limits gi george patient positioning. Bones: Postsurgical changes at C5-C6. Scattered endplate changes with osteophytes and disc space narr owing. Multilevel degenerative disc disease is noted and most pronounced at the C5-C7 vertebral level s. Cord: The spinal cord is unremarkable with regards to their signal intensity and morphology. Discs: Multilevel disc desiccation is present. C2-C3: No significant disc pathology. The spinal canal is patent. No neural foraminal stenosis. C3-C4: No significant disc pathology. The spinal canal is patent. Bilateral facet and uncovertebral joint arthropathy are present with mild bilateral neural foraminal stenosis. C4-C5: No significant disc pathology. The spinal canal is patent. Bilateral facet and uncovertebral joint arthropathy are present with moderate right and moderate to severe left neural foraminal stenos is. C5-C6: A disc osteophyte complex is present which minimally narrows the ventral subarachnoid space. Bilateral facet and uncovertebral joint arthropathy are present with moderate bilateral neural river inal stenosis. C6-C7: No significant disc pathology. The spinal canal is patent. Bilateral facet and uncovertebral joint arthropathy are present with severe bilateral neural foraminal stenosis. C7-T1: No significant disc pathology. The spinal canal is patent. Bilateral facet and uncovertebral joint arthropathy are present with moderate right and mild left neural foraminal stenosis. Other: None. LUMBAR: Alignment: The lumbar vertebral bodies have preserved heights and alignment. Cord: The conus medullaris and the distal spinal cord appear unremarkable with regards to their signa l intensity and morphology. Bones/Discs: Multilevel disc degeneration changes with osteophyte formation, disc space narrowing, Sc hmorl's nodes, and facet joint arthropathy. No abnormal inversion recovery signal to suggest bony radha ma. Intervertebral disc signal is maintained. T12-L1: No evidence of significant spinal canal stenosis. Facet joint arthropathy mild bilateral neur al foraminal stenosis. L1-L2: No evidence of significant spinal canal stenosis. Facet joint arthropathy mild bilateral neura l foraminal stenosis. L2-L3: Disc bulge and facet joint arthropathy result in severe spinal canal and mild bilateral neural foraminal stenosis. L3-L4: Disc bulge and facet joint arthropathy result in mild spinal canal and severe bilateral neural foraminal stenosis. L4-L5: Disc bulge and facet joint arthropathy result in mild spinal canal and severe bilateral neural foraminal stenosis. L5-S1: The disc is rounded posterior morphology without significant spinal canal stenosis. Facet join t arthropathy with severe bilateral neural foraminal stenosis. No significant spinal canal or neural foraminal stenosis in the remainder of the visualized levels. Other findings: None. IMPRESSION: 1. Mild to moderate degeneration changes throughout the cervical spine with varying degrees of neura l foraminal stenosis worse at C6-C7 with severe bilateral neural foraminal stenosis as well as modera te to severe left C4-C5 and moderate bilateral C5-C6. 2. No evidence for significant spinal canal stenosis and the cervical spine. 3. 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 4. Multilevel facet joint arthropathy and disc bulging with severe neural foraminal stenosis bilater ally from L3-L4, L4-L5 and L5-S1.
== END | disposition home or self-care (01) ==
LOC: RADMRIMAIN 14:08
PROVIDERS: ATTEND Internal Medicine
DX: M48.061 Spinal stenosis, lumbar region without neurogenic claudication (principal); M50.20 Other cervical disc displacement, unspecified cervical region; M99.73 Connective tissue and disc stenosis of intervertebral foramina of lumbar region; M51.37 Other intervertebral disc degeneration, lumbosacral region
CPT/HCPCS: 72141; 72148